=== PATIENT | male | born 1955 | race African-American/Black ===

== ENCOUNTER 2023-09-10 13:30 | Observation (INO) | payer OTHER ==
[2023-09-10] MEDS ORDERED: SODIUM CHLORIDE 0.9% 500 ML INFUS.BAG IV ONE ×2 (14:30→15:56)
[2023-09-10 15:19] LABS: BASO % 0.6 % (0-2.0); EOS % 0.3 % (0-4.5); HEMATOCRIT 51.9 % (35.4-49); HEMOGLOBIN 17.2 GM/dL (11.7-16.9); LYMPH % 21.8 % (8-40); MCH 28.4 pg (25.7-33.7); MCHC 33.1 g/dl (32.0-35.9); MEAN CELL VOLUME 85.7 fl (80-96); MEAN PLT VOLUME 9.4 fl (7.5-11.1); MONO % 9.9 % (3.8-10.2); NEUT % 67.4 % (42.8-82.8); PLATELET COUNT 209 10^3/uL (134-434); RBC 6.06 M/mm3 (4.00-5.60); RDW 14.9 % (11.9-15.9); WHITE BLOOD COUNT 5.1 K/mm3 (4.0-10.0)
[2023-09-10 15:25] LABS: PH,URINE 5.5 (5.0-8.0); URINE APPEARANCE CLEAR; URINE BILIRUBIN NEGATIVE (NEGATIVE); URINE COLOR DK YELLOW; URINE GLUCOSE (UA) 3+ (NEGATIVE); URINE KETONE TRACE (NEGATIVE); URINE LEUK ESTERASE NEGATIVE (NEGATIVE); URINE NITRITE NEGATIVE (NEGATIVE); URINE PROTEIN TRACE (NEGATIVE); URINE UROBILINOGEN 0.2 mg/dL (0.2-1.0)
[2023-09-10 15:26] LABS: INR 1.25 (0.83-1.09); PROTHROMBIN TIME (PATIENT) 14.5 SEC (9.7-13.0)
[2023-09-10 15:29] LABS: ACTIVATED PTT 36.8 SECONDS (25.2-36.5)
[2023-09-10 15:41] LABS: CHLORIDE 100 mmol/L (98-107); SODIUM 135 mmol/L (136-145)
[2023-09-10 15:42] LABS: CALCIUM 9.4 mg/dL (8.5-10.1)
[2023-09-10 15:43] LABS: ALBUMIN 3.8 g/dl (3.4-5.0); ANION GAP 8 mmol/L (4-13); BLOOD UREA NITROGEN 26.4 mg/dL (7-18); CO2 27 mmol/L (21-32); GLUCOSE,RANDOM 170 mg/dL (74-106); MAGNESIUM 2.5 mg/dL (1.8-2.4)
[2023-09-10 15:46] LABS: CREATININE 1.6 mg/dL (0.55-1.3); SGOT/AST 31 U/L (15-37)
[2023-09-10 15:48] LABS: BILIRUBIN,TOTAL 0.8 mg/dL (0.2-1); TOT PROT 7.4 g/dl (6.4-8.2)
[2023-09-10 15:49] LABS: ALK PHOS 112 U/L (45-117)
[2023-09-10 15:50] LABS: SGPT/ALT 23 U/L (13-61)
[2023-09-10] MEDS: SODIUM CHLORIDE 1,000 ML IV SCH (17:50)
[2023-09-10 19:20] VITALS: BMI 71.1
[2023-09-10] MEDS: ATORVASTATIN CA 40 MG TABLET (FP) PO SCH (21:15)
[2023-09-10] MEDS: TAMSULOSIN HCL 0.4 MG CAP PO SCH (21:15)
[2023-09-10] MEDS: SENNOSIDES 8.6MG TABLET (FP) PO SCH (21:15)
[2023-09-10] MEDS: RIVAROXABAN 20 MG TABLET PO SCH (21:16)
[2023-09-10] MEDS ORDERED: ASPIRIN 81 MG CHEWABLE TABLETS PO ONE (22:45)
[2023-09-11 07:51] LABS: HEMATOCRIT 42.8 % (35.4-49); HEMOGLOBIN 13.8 GM/dL (11.7-16.9); MCHC 32.1 g/dl (32.0-35.9); MEAN CELL VOLUME 87.3 fl (80-96); MEAN PLT VOLUME 9.5 fl (7.5-11.1); PLATELET COUNT 157 10^3/uL (134-434); RDW 14.3 % (11.9-15.9); WHITE BLOOD COUNT 3.3 K/mm3 (4.0-10.0)
[2023-09-11 08:14] LABS: POTASSIUM 5.1 mmol/L (3.5-5.1)
[2023-09-11 08:25] LABS: BLOOD UREA NITROGEN 20.4 mg/dL (7-18)
[2023-09-11 08:27] LABS: CALCIUM 8.3 mg/dL (8.5-10.1)
[2023-09-11 08:28] LABS: MAGNESIUM 2.2 mg/dL (1.8-2.4)
[2023-09-11 08:29] LABS: CREATININE 1.1 mg/dL (0.55-1.3)
[2023-09-11] MEDS: CHOLECALCIFEROL (VIT D3) 1,000 UNIT (25 MCG) TABLET PO SCH (09:21)
[2023-09-11] MEDS: ASPIRIN 81 MG CHEWABLE TABLETS PO SCH (09:21)
[2023-09-11] MEDS: CLOPIDOGREL BISULFATE 75 MG TABLET (FP) PO SCH (09:21)
[2023-09-11] MEDS: DULoxetine HCL 30 MG CAPSULE.DR PO SCH (09:21)
[2023-09-11] MEDS: ASCORBIC ACID 500 MG TABLET (FP) PO SCH (09:22)
[2023-09-11 14:22] LABS: CHOLESTEROL 107 mg/dL (50-200)
[2023-09-11 14:24] LABS: LDL CHOLESTEROL (ONLY SJRH) 52 mg/dL (5-100)
[2023-09-11 14:26] LABS: HDL CHOLESTEROL 45 mg/dL (40-60)
[2023-09-11 14:39] LABS: N-TERMINAL BNP 822.4 pg/ml (5-125)
[2023-09-11] MEDS: RIVAROXABAN 20 MG TABLET PO SCH (17:51)
[2023-09-11] MEDS: SODIUM CHLORIDE 1,000 ML IV SCH (17:51)
[2023-09-11] MEDS: ATORVASTATIN CA 40 MG TABLET (FP) PO SCH (21:50)
[2023-09-11] MEDS: TAMSULOSIN HCL 0.4 MG CAP PO SCH (21:50)
[2023-09-11] MEDS: SENNOSIDES 8.6MG TABLET (FP) PO SCH (21:50)
[2023-09-12] MEDS: ASPIRIN 81 MG CHEWABLE TABLETS PO SCH (10:46)
[2023-09-12] MEDS: CHOLECALCIFEROL (VIT D3) 1,000 UNIT (25 MCG) TABLET PO SCH (10:46)
[2023-09-12] MEDS: CLOPIDOGREL BISULFATE 75 MG TABLET (FP) PO SCH (10:47)
[2023-09-12] MEDS: ASCORBIC ACID 500 MG TABLET (FP) PO SCH (10:47)
[2023-09-12] MEDS: DULoxetine HCL 30 MG CAPSULE.DR PO SCH (10:47)
[2023-09-12 11:19] LABS: BASO % 0.6 % (0-2.0); EOS % 3.9 % (0-4.5); HEMOGLOBIN 14.6 GM/dL (11.7-16.9); LYMPH % 24.9 % (8-40); MCH 28.5 pg (25.7-33.7); MCHC 32.5 g/dl (32.0-35.9); MEAN CELL VOLUME 87.7 fl (80-96); MEAN PLT VOLUME 9.1 fl (7.5-11.1); NEUT % 57.6 % (42.8-82.8); PLATELET COUNT 170 10^3/uL (134-434); RBC 5.13 M/mm3 (4.00-5.60); RDW 14.4 % (11.9-15.9); WHITE BLOOD COUNT 3.4 K/mm3 (4.0-10.0)
[2023-09-12 11:46] LABS: CALCIUM 8.9 mg/dL (8.5-10.1)
[2023-09-12 11:47] LABS: BLOOD UREA NITROGEN 11.8 mg/dL (7-18)
[2023-09-12 11:50] LABS: CREATININE 0.9 mg/dL (0.55-1.3)
[2023-09-12] MEDS: RIVAROXABAN 20 MG TABLET PO SCH (17:38)
[2023-09-12] MEDS: SENNOSIDES 8.6MG TABLET (FP) PO SCH (21:24)
[2023-09-12] MEDS: TAMSULOSIN HCL 0.4 MG CAP PO SCH (21:24)
[2023-09-12] MEDS: ATORVASTATIN CA 40 MG TABLET (FP) PO SCH (21:24)
[2023-09-12] MEDS ORDERED: MELATONIN 5 MG TABLETS PO PRN (22:07)
[2023-09-13 07:42] LABS: BASO % 0.4 % (0-2.0); EOS % 4.3 % (0-4.5); HEMATOCRIT 43.8 % (35.4-49); HEMOGLOBIN 14.4 GM/dL (11.7-16.9); LYMPH % 34.9 % (8-40); MCH 28.5 pg (25.7-33.7); MCHC 32.8 g/dl (32.0-35.9); MEAN PLT VOLUME 9.3 fl (7.5-11.1); MONO % 13.1 % (3.8-10.2); NEUT % 47.3 % (42.8-82.8); PLATELET COUNT 173 10^3/uL (134-434); RBC 5.04 M/mm3 (4.00-5.60); RDW 14.5 % (11.9-15.9); WHITE BLOOD COUNT 3.6 K/mm3 (4.0-10.0)
[2023-09-13 08:13] LABS: POTASSIUM 4.5 mmol/L (3.5-5.1)
[2023-09-13 08:16] LABS: CALCIUM 8.7 mg/dL (8.5-10.1)
[2023-09-13 08:17] LABS: ALBUMIN 3.1 g/dl (3.4-5.0); BLOOD UREA NITROGEN 15.4 mg/dL (7-18)
[2023-09-13 08:20] LABS: CREATININE 1.1 mg/dL (0.55-1.3)
[2023-09-13 08:21] LABS: BILIRUBIN,TOTAL 0.5 mg/dL (0.2-1)
[2023-09-13] MEDS ORDERED: EMPAGLIFLOZIN (JARDIANCE) 10 MG TABLET PO SCH (10:00)
[2023-09-13] MEDS: CHOLECALCIFEROL (VIT D3) 1,000 UNIT (25 MCG) TABLET PO SCH (10:58)
[2023-09-13] MEDS: ASCORBIC ACID 500 MG TABLET (FP) PO SCH (10:58)
[2023-09-13] MEDS: ASPIRIN 81 MG CHEWABLE TABLETS PO SCH (10:58)
[2023-09-13] MEDS: CLOPIDOGREL BISULFATE 75 MG TABLET (FP) PO SCH (10:58)
[2023-09-13] MEDS: DULoxetine HCL 30 MG CAPSULE.DR PO SCH (10:58)
[2023-09-13 14:48] VITALS: BP 152/87; PULSE 84; RESP 20; TEMP 98.3
== END 2023-09-13 16:36 ==
LOC: JER 13:30 → UNDOADMOB 17:10 → INTOOBSV 17:10 → JERBED 17:10 → J4W 18:26
PROVIDERS: ADMIT Internal Medicine; ATTEND Internal Medicine
PROC: 3E0337Z Introduction of Electrolytic and Water Balance Substance into Peripheral Vein, Percutaneous Approach (ICD-10-PCS; principal; 2023-09-10)
DX: E86.0 Dehydration (principal); I95.1 Orthostatic hypotension; I10 Essential (primary) hypertension; I48.0 Paroxysmal atrial fibrillation; E11.9 Type 2 diabetes mellitus without complications; I25.10 Atherosclerotic heart disease of native coronary artery without angina pectoris; N40.0 Benign prostatic hyperplasia without lower urinary tract symptoms; E78.5 Hyperlipidemia, unspecified; R74.8 Abnormal levels of other serum enzymes; D58.2 Other hemoglobinopathies; N17.9 Acute kidney failure, unspecified; F31.10 Bipolar disorder, current episode manic without psychotic features, unspecified; Z79.4 Long term (current) use of insulin; Z86.73 Personal history of transient ischemic attack (TIA), and cerebral infarction without residual deficits; Z88.0 Allergy status to penicillin; Z87.891 Personal history of nicotine dependence; Z79.01 Long term (current) use of anticoagulants; Z95.5 Presence of coronary angioplasty implant and graft
CPT/HCPCS: 0241U-QW; 36415; 71045-TC-FY; 76775-TC; 80048; 80053; 80061; 81003; 82550; 82553; 82962; 83735; 83880; 84484; 85025; 85027; 85610; 85730; 87086; 93005; 93010; 93306-TC; 97116-GP; 97161-GP; 99285-25; G0378

== ENCOUNTER 2023-10-29 10:03 | Emergency (ER) | payer OTHER ==
[2023-10-29 10:35] VITALS: RESP 16; BMI 33.9
[2023-10-29] MEDS ORDERED: IBUPROFEN 400 MG TABLET (FP) PO ONE ×2 (14:08→14:37)
[2023-10-29 17:26] VITALS: BP 129/80; PULSE 61; TEMP 98.1
== END 2023-10-29 17:26 | disposition home or self-care (01) ==
LOC: JER 10:03
DX: S92.424A Nondisplaced fracture of distal phalanx of right great toe, initial encounter for closed fracture (principal); M79.674 Pain in right toe(s); W06.XXXA Fall from bed, initial encounter
CPT/HCPCS: 70450-TC; 71045-TC-FY; 72170-TC-FY; 73660-TC-FY; 73660-TC-LT-FY; 99284-25